=== PATIENT | male | born 1955 | race Caucasian/White ===

== ENCOUNTER → 2022-05-06 | Outpatient (CLI) | payer MEDICARE ==
--- NOTE | 2022-05-08 14:28 | MR ---
EXAMINATION TYPE: MR lumbar spine wo con DATE OF EXAM: 05/06/2022 7:10 PM COMPARISON: None. CLINICAL INDICATION:Male, 66 years old with history of M47.817, M43.16, M51.36, M16.0; TECHNIQUE: Multi planar, multi sequence imaging was performed utilizing: T1-weighted, T2-weighted, a nd turbo inversion recovery imaging of the lumbar spine. IV Contrast: None FINDINGS: Alignment: The lumbar vertebral bodies have preserved heights. There is straightening of the alignmen t. Cord: The conus medullaris and the distal spinal cord appear unremarkable with regards to their signa l intensity and morphology. Bones/Discs: Mild increased signal at the facet joints on L4 and L5 bilaterally suggestive of some re active bony edema. L3 vertebral body height T1/T2 signal vertebral body hemangioma. Disc desiccation changes throughout the visualized spine. Multilevel disc degeneration changes most pronounced through out the lumbar spine and at L4-L5. There is L1-L2: Left central disc protrusion without significant spinal canal stenosis. The neural foramen are patent. L2-L3: Disc bulge with facet joint arthropathy result in moderate bilateral neural foraminal stenosis . The spinal canal is mildly narrowed. L3-L4: Disc bulge with facet joint arthropathy result in moderate bilateral neural foraminal stenosis . The spinal canal is mildly narrowed. L4-L5: Disc bulge with superimposed extrusion results in severe spinal canal stenosis. (Series 701 im age 13) Facet joint arthropathy in addition to these findings results in moderate to severe right an d moderate left neural foraminal stenosis. L5-S1: Disc bulge with facet joint arthropathy result in mild spinal canal stenosis and moderate to s evere bilateral neural foraminal stenosis. Left greater than right. S1-S2: Transitional vertebra at this level with disc. Disc bulge with facet joint arthropathy result in mild bilateral neural foraminal stenosis. The spinal canal is patent. Other findings: None. IMPRESSION: 1. 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 2. 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 Resulting in neural fo raminal stenosis worse at L5-S1 and L4-L5 bilaterally.
== END | disposition home or self-care (01) ==
LOC: RADMRIMAIN 18:30
PROVIDERS: ATTEND Physical Medicine & Rehabilitation
DX: M47.817 Spondylosis without myelopathy or radiculopathy, lumbosacral region (principal); M43.16 Spondylolisthesis, lumbar region; M51.36 Other intervertebral disc degeneration, lumbar region; M16.0 Bilateral primary osteoarthritis of hip; M48.061 Spinal stenosis, lumbar region without neurogenic claudication; M51.26 Other intervertebral disc displacement, lumbar region
CPT/HCPCS: 72148